=== PATIENT | male | born 1970 | race Hispanic/Latino ===

== ENCOUNTER 2017-04-19 16:33 | Emergency (ER) | payer SELFPAY ==
[~2017-04-19] VITALS: Ht 177.8 cm; Wt 105.2 kg
--- NOTE | 2017-04-19 18:43 | Diagnostic Imaging Report ---
EXAMINATION: Head CT HISTORY: Hypertension, left facial droop COMPARISON: None. TECHNIQUE: Multidetector axial images were obtained without contrast from the foramen magnum to the vertex . The images were reconstructed using brain and bone algorithms. Thin section brain images were reformatted into coronal and sagittal planes. Intravenous contrast: None. Motion/streaking artifact limits the evaluation of the skull base and posterior cranial fossa. FINDINGS: Parenchyma: 1. No abnormal densities. 2. No mass or hemorrhage. No CT evidence of acute territorial vascular insult. Extra-axial spaces:No abnormal density. No extra-axial fluid collections Brain volume: Normal for age. Ventricles: No hydrocephalus or displacement. Arteries: No density suggestive of thrombus. Dural sinuses: No abnormal density. Extra-axial spaces: No abnormal density. Foramen magnum: No mass, Chiari malformation, or basilar invagination. Sella: No obvious mass. Paranasal/mastoid sinuses: Imaged portions unremarkable. Skull/Scalp: No lytic or blastic lesions. No fractures. IMPRESSION: No intracranial abnormalities, particularly no hemorrhage. Signed by: Dr. Carisa Garcia M.D. on 04/19/2017 6:39 PM
[2017-04-19] MEDS ORDERED: PREDNISONE20 MG PO ×3 (19:31→19:33)
[2017-04-19] MEDS ORDERED: PREDNISONE10 MG PO (19:33)
[2017-04-19] MEDS ORDERED: ACYCLOVIR800 MG PO (19:35)
[2017-04-19 19:45] VITALS: BP 200/116
== END 2017-04-19 19:48 | disposition home or self-care (01) ==
LOC: ER 16:33
DX: R29.810 Facial weakness (principal); I10 Essential (primary) hypertension; Z91.14 Patient's other noncompliance with medication regimen
CPT/HCPCS: 70450; 99283